=== PATIENT | female | born 1950 | race Caucasian/White ===

== ENCOUNTER 2025-02-12 08:11 | Outpatient (AMB) | payer MEDICARE, SELFPAY ==
[2025-02-12 08:26] VITALS: BP 138/80; PULSE 92; BMI 40.4
--- NOTE | 2025-02-12 08:26 | A.OFFVIS_ITS ---
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/DORENED with severe statin allergy Allergies shellfish derived (shellfish) Allergy (Severe, Verified 02/12/25 08:37) Unknown Opjzrvc-ZUB-OlF Reductase Inhibitor Adverse Reaction (Severe, Verified 02/12/25 08:37) Unknown lisinopril Adverse Reaction (Unknown, Verified 02/12/25 08:37) Unknown Sulfa (Sulfonamide Antibiotics) Adverse Reaction (Verified 02/12/25 08:37) Unknown Medication List - Last Reconciled 02/12/25 by Ranjith Baez MD atorvastatin (Lipitor) 10 mg PO QPM ezetimibe 10 mg PO DAILY hydrochlorothiazide 12.5 mg PO BID ibuprofen 600 mg PO Q6H PRN meloxicam 15 mg PO DAILY HPI Comments Details: The patient is a 74-year-old female presenting with hyperlipidemia management. The patient has had elevated cholesterol levels for approximately 25 years, with no significant improvement despite various treatments. She has experienced adverse reactions to statins, including muscle weakness and difficulty walking, leading to discontinuation of these medications. The patient has been on Zetia for about five years, but her cholesterol levels remain suboptimal. 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 She has been using compression therapy for nearly a year without significant improvement. The patient has a history of endometrial cancer, for which she underwent a full hysterectomy and oophorectomy at [facility] in [place]. She reports no recurrence of cancer and has been under regular surveillance. [facility] Medical History (Updated 02/12/25 @ 09:03 by Ranjith Baez MD) Hyperlipidemia, unspecified Osteoarthritis Surgical History (Updated 02/12/25 @ 08:40 by Carey Bella) H/O: hysterectomy Family History (Updated 02/12/25 @ 08:41 by Carey Bella) Father Stroke Mother Alzheimer dementia Social History (Updated 02/12/25 @ 08:41 by Carey Bella) Alcohol intake: never Patient Tobacco Use Status: Never used Tobacco Review of Systems Const Denies weakness ENT Denies dizziness Card Denies chest pain, Denies chest pain with activity, Denies syncope, Denies rapid heart rate, Denies pedal edema, Denies edema, Reports leg edema, Denies lightheadedness, Denies palpitations, Denies dyspnea, Denies dyspnea on exertion and Denies orthopnea Resp Denies cough, Denies dyspnea and Denies dyspnea on exertion GI Denies hematochezia and Denies change in stool character Musc Reports abnormal gait, Denies muscle cramps, Denies muscle weakness, Denies n umbness, Denies radiating pain into limb and Denies tingling Neuro Reports abnormal gait, Denies dizziness, Denies syncope, Denies numbness, Denies tingling and Denies weakness Endo Denies palpitations Physical Exam Vital Signs: Last Vital Signs Pulse 92 02/12/25 08:26 BP 138/80 02/12/25 08:26 BMI result Body Mass Index 40.4 Const General: comfortable and no acute distress Orientation/consciousness: patient oriented x3 HEENT Other: Unremarkable Head: Yes normal to inspection Neck Neck: Yes normal visual inspection Chest Chest palpation & inspection: normal inspection of the chest Resp Auscultation: clear to auscultation bilaterally Cardio Palpation: normal PMI Heart sounds: S1 normal heart sound present, S2 normal heart sound present, no gallops, no murmurs and no rubs GI Palpation (GI): Soft to palpation Back/Spine/Pelvis Other: unremarkable Skin General skin exam: no rashes or lesions noted Neuro General: patient oriented x3 Extrem Other: chronic appearing leg swelling Psych Mental Status: mental status grossly normal Office Procedures EKG Details: EKG with underlying sinus rhythm at 72/Min; nonspecific ST-T changes; [place] [address]-[id number], Complete Assessment & Plan Assessment & Plan (1) Hyperlipidemia, unspecified: Code(s): E78.5 - Hyperlipidemia, unspecified Category: Medical Plan: LDL levels are listed as 174 mg/dL and 163 mg/dL. Triglycerides are 183 and 226 mg/dL. It seems that she has not taken statins and more than 20 years and at that time, had some combination of muscle aches/weakness. We discussed about re-attempted statins versus trying injectables. She states she would not want any injections and hence she would like to re-attempt statins. Can status small dose of atorvastatin and see how she does with that. We also discussed about screening for coronary disease. We discussed about calcium scoring CT scan as well as coronary CTA. We agreed on doing a coronary CTA. If indeed there is significant plaque buildup, we will need to be more aggressive with cholesterol management. (2) Leg swelling: Code(s): M79.89 - Other specified soft tissue disorders Category: Medical Plan: Goes to [facility]. Diagnosed as chronic venous hypertension, lymphedema, lipedema. We will get an echocardiogram from cardiac standpoint. Plan Discussion Notes I discussed with the patient the management of her hyperlipidemia, including the initiation of atorvastatin and the potential need for injections if statins are not tolerated. We also talked about the importance of an echocardiogram to evaluate her heart function, given her history of leg swelling and hyperlipidemia. The patient was informed about coronary CAT scan to assess plaque buildup. Patient was informed and verbally consented to the use of an ambient scribe for clinic note documentation during this visit. Orders: Orders Basic Metabolic Panel Today I25.10 - Atherosclerotic heart disease of [place] coronary artery without angina pectoris CA echo transthoracic complete Today M79.89 - Other specified soft tissue disorders CT Cardiac Coronary Angio Today I25.10 - Atherosclerotic heart disease of [place] coronary artery without angina pectoris Medications: New atorvastatin (Lipitor) 10 mg PO QPM 30 tabs 5RF Patient Instructions: - Start taking atorvastatin 10 mg daily. - Monitor for any muscle weakness or other side effects. - Continue using compression therapy for leg swelling. - Schedule an echocardiogram to check heart function. - Consider a CAT scan to assess plaque buildup. Coding Level of Care Code New Pt Level 4 (87363) Complex EM visit Add On G2211 Diagnoses Hyperlipidemia, unspecified E78.5 Leg swelling M79.89 CPT Codes EKG - CPT: 25505-[id number], Complete ([id number])
== END 2025-02-12 09:09 | disposition home or self-care (01) ==
LOC: HO.HCS 08:12
PROVIDERS: PCP Internal Medicine; Visit Provider Internal Medicine
DX: E78.5 Hyperlipidemia, unspecified (principal); M79.89 Other specified soft tissue disorders
CPT/HCPCS: 93010; 99204; G2211

== ENCOUNTER → 2025-02-12 08:11 | Outpatient (BNVA) | payer MEDICARE, SELFPAY | PROVIDERS: PCP Internal Medicine; Visit Provider Internal Medicine | DX: I25.10 Atherosclerotic heart disease of native coronary artery without angina pectoris (principal); I10 Essential (primary) hypertension; E78.00 Pure hypercholesterolemia, unspecified; M79.89 Other specified soft tissue disorders | CPT/HCPCS: 93005; 99202 ==

== ENCOUNTER → 2025-03-21 07:40 | Outpatient (REF) | payer MEDICARE, SELFPAY ==
--- NOTE | 2025-03-21 07:44 | CA_ITS ---
Transthoracic Echocardiogram Patient (Last, First, Middle): Eva Palacios L Gender: F Date of : 1950 Age: 74 Procedure Date: 03/21/2025 Procedure Type: Transthoracic Echocardiogram Location: OP Height: 165.1 cm Weight: 95.26 kg BSA: 2.02 m2 Heart Rate: 68 bpm BP: 162 / 95 mmHg Station Operator: DEVON Referring MD: Ranjith Baez MD Symptoms: M79.89 - Other specified soft tissue disorders Study Quality: Adequate ECG Rhythm: Sinus Conclusions: - The left ventricular systolic function is normal. The calculated ejection fraction is 62% by biplane method. - There is mild calcification of the aortic valve. - No obvious valvular pathology seen on this study. Findings Left Ventricle Normal left ventricular cavity size. The left ventricular systolic function is normal. The calculated ejection fraction is 62% by biplane method. There is no evidence of regional wall motion abnormalities. Diastolic function is normal for age. There is mild septal asymmetric hypertrophy. Right Ventricle Normal right ventricular cavity size. There is mildly decreased right ventricular systolic function. Atria Both atria are normal in size. Aortic Valve There is a normal trileaflet aortic valve. There is mild calcification of the aortic valve. There is no aortic valve regurgitation. No significant aortic stenosis. Mitral Valve The mitral valve appears normal. There is no mitral valve regurgitation. There is no mitral valve stenosis. Pulmonic Valve The pulmonic valve is likely normal. Tricuspid Valve There is trace tricuspid valve regurgitation. There is no evidence of pulmonary hypertension. Great Vessels The asc aorta is normal in size. Venous The inferior vena cava is normal in size and collapses greater than 50% with inspiration. Pericardium/Pleural There is no evidence of pericardial effusion. Prior Study Comparison No prior study available for comparison. Recommendations, Care & Conclusions No obvious valvular pathology seen on this study. Measurements 2D Linear Measurements IVSd: 1.15 0.6-0.9/0.6-1.0 cm LVIDd: 3.48 3.9-5.3/4.2-5.9 cm LVIDd Index: 1.72 2.4-3.2/2.2-3.1 cm/m2 LVIDs: 2.64 2.0-3.6 cm LVPWd: 0.93 0.7-1.1 cm LA Diam: 2.50 2.7-3.8/3.0-4.0 cm LAIDs Index: 1.24 1.5-2.3 cm/m2 LV Mass: 135.02 67-162/88-224 g LV Mass Index: 66.84 43-95/49-115 g/m2 LVOT Diam: 2.00 3.0+(-)1.3 cm 2D Systolic Function EF 4C: 57.00 >55% EF 2C: 65.70 >55% EF BiP: 62.20 >55% Mitral Valve MV Pk E: 0.53 MV PK A: 0.80 MV Decel Time: 372.00 E/A: 0.70 E'Lateral: 7.72 E'Medial: 6.31 E/E' Med: 8.40 E/E' Lat: 6.80 PHT: 109.00 MVA PHT: 2.02 Decel Mcclain: 1.42 Aortic Valve AoV Pk Gianni: 1.54 AoV Mn Gianni: 1.11 AoV VTI: 0.37 AoV Pk Grad: 9.00 Aov Mn Grad: 5.00 LUCY Cont.VTI: 1.86 LVOT LVOT Pk Gianni: 0.93 LVOT Mn Gianni: 0.72 LVOT VTI: 0.22 LVOT Pk Grad: 3.00 LVOT Mn Grad: 2.00 LVOT Diam: 2.00 LVOT Area: 3.14 Diastolic Function MV Pk E: 0.53 MV Pk A: 0.80 E/A: 0.70 E'Medial: 6.31 E/E' Med: 8.40 E' Laterial: 7.72 E/E' Lat: 6.80 Right Ventricle TAPSE (mm): 19.80 TVS' Gianni: 9.30 Tricuspid Valve TR Pk Gianni: 2.14 TR Pk Grad: 18.00 RA Press: 3.00 RVSP: 21.00 Great Vessels Aorta Sinus of Valsalva: 2.90 2.0-3.5 cm Ao Asc: 3.20 2.1-3.4 cm Ao Arch: 2.90 Pulmonary Veins Pulm Vein S/D 1.60 Pulmonary Valve PV Pk Gianni: 1.14 Peak PV Grad: 5.00 Updated in Other Vendor System with Status of Final Ranjith Baez MD electronically signed on 03/23/2025 2:06:59 PM with status of Final
== END ==
LOC: HO.CARD 07:40
PROVIDERS: PCP Internal Medicine; Visit Provider Internal Medicine
DX: R60.0 Localized edema (principal)
CPT/HCPCS: 93306

== ENCOUNTER → 2025-03-21 07:44 | Outpatient (BNV) | payer MEDICARE, SELFPAY | PROVIDERS: PCP Internal Medicine; Visit Provider Internal Medicine | DX: I35.8 Other nonrheumatic aortic valve disorders (principal) | CPT/HCPCS: 93306 ==